=== PATIENT | male | born 1985 | race Caucasian/White ===

== ENCOUNTER 2024-01-21 23:11 | Inpatient (IN) | payer SELFPAY ==
[~2024-01-21] VITALS: Ht 183.5 cm; Wt 90.7 kg
[2024-01-22] MEDS ORDERED: DOXYCYCLINE HYCLATE 100 MG/VIAL IV ONE
[2024-01-22] MEDS: DOXYCYCLINE 100MG in DEXTROSE 5% WATER 100ML IV NR (00:26)
[2024-01-22] MEDS: SODIUM CHLORIDE 0.9% 1000ML BAG (SEPSIS BOLUS) IV ONE (00:26)
[2024-01-22 00:42] LABS: BASOPHILS % 0.7 % (0.0-2.0); EOSINOPHILS % 2.3 % (0.0-5.0); HEMATOCRIT. 42.1 % (42.0-52.0); HEMOGLOBIN. 14.8 g/dL (14.0-18.0); LYMPHOCYTES % 30.9 % (20.0-50.0); MEAN CORPUSCULAR HEMOGLOBIN 31.5 pg (28.0-32.0); MEAN CORPUSCULAR HGB CONC 35.1 g/dL (31.0-37.0); MEAN CORPUSCULAR VOLUME 89.7 fL (80.0-94.0); MEAN PLATELET VOLUME 7.5 fl (7.4-10.4); MONOCYTES % 7.6 % (2.0-8.0); NEUTROPHILS % 58.5 % (40.0-76.0); PLATELET 331 x1000/uL (130-400); RED BLOOD CELL COUNT 4.69 mill/uL (4.7-6.1); RED CELL DISTRIBUTION WIDTH 12.5 % (11.6-14.6); WHITE BLOOD COUNT 8.1 x1000/uL (4.5-11.0)
[2024-01-22 00:53] LABS: ALANINE AMINOTRANSFERASE 47 IU/L (10-49); ASPARTATE AMINOTRANSFERASE 24 IU/L (<34); BILIRUBIN TOTAL 1.1 mg/dL (0.1-1.0); CALCIUM 9.5 mg/dL (8.7-10.4); CARBON DIOXIDE 26 mEq/L (21-32); CHLORIDE 105 mEq/L (98-107); GLUCOSE 87 mg/dL (70-105); POTASSIUM 3.5 mEq/L (3.5-5.1); PROTEIN TOTAL 8.3 g/dL (6.0-8.3); SODIUM 139 mEq/L (136-145); UREA NITROGEN BLOOD 13 mg/dL (9-23)
[2024-01-22 01:50] LABS: CLARITY URINE CLEAR (CLEAR); COLOR URINE YELLOW (YELLOW); GLUCOSE URINE NEGATIVE (NEGATIVE); KETONES URINE NEGATIVE (NEGATIVE); LEUKOCYTE ESTERASE URINE NEGATIVE (NEGATIVE); NITRITE URINE NEGATIVE (NEGATIVE); OCCULT BLOOD URINE NEGATIVE (NEGATIVE); PH URINE 5.5 (4.5-8.0); PROTEIN URINE NEGATIVE (NEGATIVE); SPECIFIC GRAVITY URINE 1.017 (1.005-1.030); UROBILINOGEN URINE 0.2 E.U./dL (0.2-1.0)
[2024-01-22] MEDS ORDERED: CEFEPIME 2GM/50ML DUPLEX 50 ML IV SCH (06:00)
[2024-01-22] MEDS: CEFEPIME 2,000 MG in DEXT 5% WATER 100 ML IV SCH (06:37)
[2024-01-22 08:42] VITALS: BP 120/62; PULSE 80; RESP 20; TEMP 98.8
[2024-01-22] MEDS ORDERED: ACETAMINOPHEN 325MG TABLET PO PRN (09:15)
[2024-01-22] MEDS ORDERED: ONDANSETRON HCL 4MG/2ML INJ IV PRN (09:15)
[2024-01-22] MEDS ORDERED: LEVO-65 MT (12:19)
[2024-01-22] MEDS ORDERED: SULF1TAB48 MT (12:19)
[2024-01-22] MEDS: VANCOMYCIN 1,750 MG in DEXT 5% WATER 500 ML IV NR (12:48)
[2024-01-22] MEDS: CEFTRIAXONE 1GM PREMIX 50 ML IV SCH (12:48)
[2024-01-22 15:56] VITALS: BP 120/62; PULSE 80; TEMP 99; O2SAT 98
[2024-01-22] MEDS ORDERED: NEOMY SULF/BACITRAC ZN/POLY OINT 28GM TOP SCH (21:00)
[2024-01-22] MEDS ORDERED: VANCOMYCIN 1.25GM PMX (XELLIA) 250 ML IV SCH (22:00)
== END 2024-01-22 17:34 | disposition home or self-care (01) | DRG 383 ==
LOC: ER 01-22 00:04 → 6WST 01-22 00:19
PROVIDERS: ADMIT Internal Medicine; ATTEND Internal Medicine
DX: L03.116 Cellulitis of left lower limb (principal)
CPT/HCPCS: 36415; 73630; 80053; 81003; 83605; 84145; 85025; J0692; J0696; J3370; J3490; J7030; J7060